=== PATIENT | female | born 1970 | race Caucasian/White ===

== ENCOUNTER → 2017-03-28 | Outpatient (CLI) | payer BC ==
[~2017-03-28] MED LIST: CONTRAST GIVEN MC PRN; HYDR-2766 PO; IOHEXOL 240 MG/ML 50ML VIAL. PO ONE; IOHEXOL 300 MG/ML 100ML VIAL. IV ONE; LISI1TAB3 PO; ONDA8TAB9 PO
--- NOTE | 2017-03-28 10:18 | KCIC ---
Indication: Chronic abdominal pain for one to 2 weeks. Pain is greater in the lower abdomen. Irritable bowel syndrome. Technique: Axial images and coronal and sagittal reformatted images are provided. Oral contrast and 100 mL of intravenous Omnipaque 300 was administered without complication. Comparison is a CT from March 09, 2010. One or more of the following individualized dose reduction techniques were utilized for this examination: 1. Automated exposure control 2. Adjustment of the mA and/or kV according to patient size 3. Use of iterative reconstruction technique Findings: 2 mm nodule is noted in the right middle lobe on the initial image. There is no pleural effusion. The heart is not enlarged. There is fatty infiltration of the liver. Gallbladder is absent. Spleen is not enlarged. Pancreas and adrenals are unremarkable. Kidneys are symmetrically perfused. Aorta is normal caliber. There is no small bowel obstruction or mural thickening. Normal appendix is noted. Colon is mostly decompressed but grossly unremarkable. Incomplete distention of the colon limits evaluation. There is a small fat-containing umbilical hernia. There is increased pelvic fat with compression of the bladder in the transverse dimension. Uterus is presumed surgically absent. Calcified phleboliths are noted. Mildly prominent left iliac chain lymph node measures 17 x 10 mm. This is relatively stable compared to 2010. There are degenerative changes in the spine greatest at L4-L5, probably moderate canal stenosis at this level. IMPRESSION: 1. No acute abdominal findings. 2. Fatty infiltration of the liver. 3. Mildly prominent left iliac chain lymph node is stable back to 2010, probably reactive. 4. Pelvic lipomatosis. 5. Moderate stenosis suspected at L4-L5, would be better evaluated by MRI or postmyelogram CT. 6. 2 mm pulmonary nodule. In a low-risk patient, no further workup is required. In a high-risk patient, 12 month follow-up can be considered. Recommendations are per 2017 Fleischner Society guidelines. Electronically signed by: Robert Fields MD (03/28/2017 10:15 AM) [id number]
== END | disposition home or self-care (01) ==
LOC: KCIC CT 08:12
PROVIDERS: ATTEND Family Medicine
DX: K58.9 Irritable bowel syndrome, unspecified (principal); K76.0 Fatty (change of) liver, not elsewhere classified; G89.29 Other chronic pain; E88.2 Lipomatosis, not elsewhere classified; R91.1 Solitary pulmonary nodule
CPT/HCPCS: 74177; Q9966; Q9967

== ENCOUNTER 2019-05-23 19:17 | Emergency (ER) | payer OTHER ==
[~2019-05-23] VITALS: Ht 157.5 cm; Wt 112.5 kg
[~2019-05-23 19:17] MED LIST changes: -CONTRAST GIVEN MC PRN; -HYDR-2766 PO; +HYDR-2769 PO; -IOHEXOL 240 MG/ML 50ML VIAL. PO ONE; -IOHEXOL 300 MG/ML 100ML VIAL. IV ONE; +LISI1TAB23 PO; -LISI1TAB3 PO
[2019-05-23 19:58] LABS: BASO % 0 % (0-3); EOS # 0.1 x10^3/uL (0.0-0.7); EOS % 2 % (0-3); HEMATOCRIT 36.9 % (36.0-47.0); HEMOGLOBIN 12.6 g/dL (12.0-15.5); LYMPH # 3.7 x10^3/uL (1.0-4.8); LYMPH % 40 % (24-48); MEAN CORPUSCULAR HEMOGLOBIN 29 pg (25-35); MEAN CORPUSCULAR HGB CONC 34 g/dL (31-37); MEAN CORPUSCULAR VOLUME 86 fL (79-100); MONO # 0.5 x10^3/uL (0.0-1.1); MONO % 6 % (0-9); NEUT # 4.8 x10^3/uL (1.8-7.7); NEUT % 52 % (31-73); PLATELET COUNT 281 x10^3/uL (140-400); RED BLOOD COUNT 4.29 x10^6/uL (3.50-5.40); RED CELL DISTRIBUTION WIDTH 12.7 % (11.5-14.5); WHITE BLOOD COUNT 9.3 x10^3/uL (4.0-11.0)
[2019-05-23 19:59] LABS: BILIRUBIN,URINE NEGATIVE (NEG); CLARITY,URINE CLEAR; COLOR,URINE YELLOW; NITRITE,URINE NEGATIVE (NEG); PH,URINE 5.5; PROTEIN,URINE NEGATIVE (NEG-TRACE); UROBILINOGEN,URINE 0.2 mg/dL (0.2 mg/dL)
[2019-05-23] MEDS ORDERED: KETOROLAC 30 MG/ML VIAL. IV ONE (20:00)
[2019-05-23 20:05] LABS: BARBITURATES NEG (NEG); BENZODIAZEPINES NEG (NEG); CANNABINOIDS NEG (NEG); COCAINE NEG (NEG); METHADONE NEG (NEG); OPIATES NEG (NEG); PHENCYCLIDINE NEG (NEG)
[2019-05-23 20:09] LABS: BACTERIA,URINE MODERATE /HPF (0-FEW); RBC,URINE 0 /HPF (0-2); SQUAMOUS EPITHELIAL CELL,UR MOD /LPF
[2019-05-23 20:12] LABS: CALCIUM 9.4 mg/dL (8.5-10.1); CREATININE 0.7 mg/dL (0.6-1.0); GFR 89.7
[2019-05-23 20:17] LABS: AMPHETAMINE/METHAMPHETAMINE NEG (NEG)
[2019-05-23 20:18] LABS: ALBUMIN/GLOBULIN RATIO 1.1 (1.0-1.7); TOTAL BILIRUBIN 0.3 mg/dL (0.2-1.0); TOTAL PROTEIN 7.7 g/dL (6.4-8.2)
--- NOTE | 2019-05-23 20:34 | PHYS DOC ---
Past Medical History Past Medical History: Hypertension, IBS Additional Past Medical Histor: REPORTS SHE NO LONGER HAS HYPERTENSION DOES NOT TAKE ANY MEDS Past Surgical History: Cholecystectomy, , Hysterectomy Additional Past Surgical Histo: MORTONS NEUROMA REMOVED, CARPAL TUNNEL, ULNAR NERVE, BREAST REDUCTION Alcohol Use: Rarely Drug Use: None Adult General Chief Complaint Chief Complaint: FLANK PAIN [facility] HPI Patient is a 49 year old female with a history of hypertension, cholecystectomy, who presents to the ED today complaining of 8 out of 10 right flank pain radiating to her right upper abdomen and the groin that began this morning at 10 AM. Patient describes the pain as sharp and intermittent worse on movement and sitting up. Denies anything specifically related pain. Denies any nausea, vomiting, diarrhea. Review of Systems Review of Systems Constitutional: Denies fever or chills [] Eyes: Denies change in visual acuity, redness, or eye pain [] HENT: Denies nasal congestion or sore throat [] Respiratory: Denies cough or shortness of breath [] Cardiovascular: No additional information not addressed in HPI [] GI: Reports right upper quadrant pain, denies nausea, vomiting, bloody stools or diarrhea [] : Denies dysuria or hematuria [] Musculoskeletal: Reports right flank pain. Integument: Denies rash or skin lesions [] Neurologic: Denies headache, focal weakness or sensory changes [] All other systems were reviewed and found to be within normal limits, except as documented in this note. Current Medications Current Medications Current Medications Medications (Trade) Dose Ordered Sig/[facility] Start Time Stop Time Status Last Admin Dose Admin Ketorolac Tromethamine (Toradol 30mg Vial) 30 mg 1X ONCE 05/23/19 20:00 05/23/19 20:01 DC 05/23/19 20:00 30 MG Allergies Allergies Allergies Coded Allergies Type Severity Reaction Last Updated Verified Iodine and Iodide Containing Produc Allergy Mild Hives 03/28/17 Yes amphetamine Allergy Unknown 03/28/17 Yes dextroamphetamine Allergy Unknown 03/28/17 Yes oxycodone Allergy Unknown 03/28/17 Yes Physical Exam Physical Exam Constitutional: Well developed, well nourished, no acute distress, non-toxic appearance. [] HENT: Normocephalic, atraumatic, bilateral external ears normal, oropharynx moist, no oral exudates, nose normal. [] Eyes: PERRLA, EOMI, conjunctiva normal, no discharge. [] Neck: Normal range of motion, no tenderness, supple, no stridor. [] Cardiovascular:Heart rate regular rhythm, no murmur [] Lungs & Thorax: Bilateral breath sounds clear to auscultation [] Abdomen: Bowel sounds normal, soft, no tenderness, no masses, no pulsatile masses. [] Skin: Warm, dry, no erythema, no rash. [] Back: No tenderness, mild right CVA tenderness. [] Extremities: No tenderness, no cyanosis, no clubbing, ROM intact, no edema. [] Neurologic: Alert and oriented X 3, normal motor function, normal sensory function, no focal deficits noted. [] Psychologic: Affect normal, judgement normal, mood normal. [] Current Patient Data Vital Signs Vital Signs Date Time Temp Pulse Resp B/P (MAP) Pulse Ox O2 Delivery O2 Flow Rate FiO2 05/23/19 19:29 98.2 80 20 160/74 (102) 94 Room Air 98.2 Lab Values Laboratory Tests Test 05/23/19 19:40 White Blood Count 9.3 x10^3/uL (4.0-11.0) Red Blood Count 4.29 x10^6/uL (3.50-5.40) Hemoglobin 12.6 g/dL (12.0-15.5) Hematocrit 36.9 % (36.0-47.0) Mean Corpuscular Volume 86 fL (79-100) Mean Corpuscular Hemoglobin 29 pg (25-35) Mean Corpuscular Hemoglobin Concent 34 g/dL (31-37) Red Cell Distribution Width 12.7 % (11.5-14.5) Platelet Count 281 x10^3/uL (140-400) Neutrophils (%) (Auto) 52 % (31-73) Lymphocytes (%) (Auto) 40 % (24-48) Monocytes (%) (Auto) 6 % (0-9) Eosinophils (%) (Auto) 2 % (0-3) Basophils (%) (Auto) 0 % (0-3) Neutrophils # (Auto) 4.8 x10^3/uL (1.8-7.7) Lymphocytes # (Auto) 3.7 x10^3/uL (1.0-4.8) Monocytes # (Auto) 0.5 x10^3/uL (0.0-1.1) Eosinophils # (Auto) 0.1 x10^3/uL (0.0-0.7) Basophils # (Auto) 0.0 x10^3/uL (0.0-0.2) Urine Collection Type Unknown Urine Color Yellow Urine Clarity Clear Urine pH 5.5 Urine Specific [place] 1.025 Urine Protein Negative mg/dL (NEG-TRACE) Urine Glucose (UA) Negative mg/dL (NEG) Urine Ketones (Stick) Negative mg/dL (NEG) Urine Blood Negative (NEG) Urine Nitrite Negative (NEG) Urine Bilirubin Negative (NEG) Urine Urobilinogen Dipstick 0.2 mg/dL (0.2 mg/dL) Urine Leukocyte Esterase Negative (NEG) Urine RBC 0 /HPF (0-2) Urine WBC 1-4 /HPF (0-4) Urine Squamous Epithelial Cells Mod /LPF Urine Bacteria Moderate /HPF (0-FEW) Urine Mucus Marked /LPF Sodium Level 142 mmol/L (136-145) Potassium Level 4.0 mmol/L (3.5-5.1) Chloride Level 103 mmol/L (98-107) Carbon Dioxide Level 31 mmol/L (21-32) Anion Gap 8 (6-14) Blood Urea Nitrogen 16 mg/dL (7-20) Creatinine 0.7 mg/dL (0.6-1.0) Estimated GFR (Cockcroft-Gault) 89.7 BUN/Creatinine Ratio 23 (6-20) H Glucose Level 95 mg/dL (70-99) Calcium Level 9.4 mg/dL (8.5-10.1) Total Bilirubin 0.3 mg/dL (0.2-1.0) Aspartate Amino Transferase (AST) 16 U/L (15-37) Alanine Aminotransferase (ALT) 18 U/L (14-59) Alkaline Phosphatase 90 U/L (46-116) Total Protein 7.7 g/dL (6.4-8.2) Albumin 4.0 g/dL (3.4-5.0) Albumin/Globulin Ratio 1.1 (1.0-1.7) Lipase 140 U/L (73-393) Urine Opiates Screen Neg (NEG) Urine Methadone Screen Neg (NEG) Urine Barbiturates Neg (NEG) Urine Phencyclidine Screen Neg (NEG) Urine Amphetamine/Methamphetamine Neg (NEG) Urine Benzodiazepines Screen Neg (NEG) Urine Cocaine Screen Neg (NEG) Urine Cannabinoids Screen Neg (NEG) Ethyl Alcohol Level < 10 mg/dL (0-10) Urine Ethyl Alcohol Neg (NEG) Laboratory Tests 05/23/19 19:40 Laboratory Tests 05/23/19 19:40 EKG EKG [] Radiology/Procedures Radiology/Procedures []PROCEDURE: CT ABDOMEN PELVIS WO CONTRAST CT scan of the abdomen and pelvis without contrast 05/23/2019 CLINICAL HISTORY: Right flank pain. TECHNIQUE: Unenhanced, contiguous, 2 mm axial sections were obtained through the abdomen and pelvis. One or more of the following individualized dose reduction techniques were utilized for this study: 1. Automated exposure control. 2. Adjustment of the mA and/or kV according to patient size. 3. Use of iterative reconstruction technique. FINDINGS: Comparison study is dated 03/28/2017. Images through the lung bases demonstrate minimal dependent subsegmental atelectasis bilaterally. The liver parenchyma has a decreased attenuation consistent with fatty infiltration. The liver is mildly enlarged measuring 22 cm in length. The spleen, pancreas and adrenal glands are within normal limits. No renal or ureteral calculus is seen. There is no evidence of obstruction of either collecting system. Surgical clips are seen within the gallbladder fossa consistent with a cholecystectomy. The abdominal aorta tapers normally. No free fluid or free air is seen within the abdomen. The appendix is well-visualized and is within normal limits. Patchy increased density is seen within the fat lateral to the inferior aspect of the ascending colon. This may represent a focal area of epiploic appendagitis. Images through the pelvis demonstrate the urinary bladder distended with urine. Calcifications are seen within the pelvis consistent with phleboliths. No free fluid is seen. No adnexal mass is noted. The patient appears to be post hysterectomy. Very mild S-shaped curvature of the thoracolumbar spine is seen. Degenerative changes are seen involving lower thoracic and throughout the lumbar spine along with both hips. IMPRESSION: A patchy area of increased density is seen within the fat lateral to the inferior aspect of the ascending colon which may represent a focal area of epiploic appendagitis. Electronically signed by: Owen Chairez MD (05/23/2019 8:50 PM) [facility] DICTATED and SIGNED BY: OWEN CHAIREZ MD DATE: 05/23/192049 Course & Med Decision Making Course & Med Decision Making Pertinent Labs and Imaging studies reviewed. (See chart for details) This is a 49-year-old female patient who presents to the ED today with right fl ank pain radiating to the right upper quadrant into the groin, pain began this morning at 10. CBC, CMP, UA-negative for any acute findings. Vitals are stable, patient is afebrile. CT of the abdomen and pelvic was noted for epiploic appendagitis. Patient was discharged to home with pain medicine. Provided return precautions. Follow-up with PCP in 1-2 weeks. Dragon Disclaimer Dragon Disclaimer This electronic medical record was generated, in whole or in part, using a voice recognition dictation system. Departure Departure Impression: Primary Impression: Epiploic appendagitis Disposition: HOME, SELF-CARE Condition: STABLE Referrals: YOSEF PHIPPS MD (PCP) Follow-up with your doctor next week Patient Instructions: Abdominal Pain (Nonspecific) Additional Instructions: You were evaluated in the emergency room and noted to have epiploic appendagitis-this is a rare condition that occurs when you lose blood flow to very small pouches of fat that are situated over the colon, or large intestine, this condition is self-limited mending it will resolve on its own. You can take [id number] pain medicines as needed. Follow-up with your own doctor in the course of next week. KOREY HERNANDEZ APRN May 23, 2019 20:34
--- NOTE | 2019-05-23 20:53 | RAD ---
CT scan of the abdomen and pelvis without contrast 05/23/2019 CLINICAL HISTORY: Right flank pain. TECHNIQUE: Unenhanced, contiguous, 2 mm axial sections were obtained through the abdomen and pelvis. One or more of the following individualized dose reduction techniques were utilized for this study: 1. Automated exposure control. 2. Adjustment of the mA and/or kV according to patient size. 3. Use of iterative reconstruction technique. FINDINGS: Comparison study is dated 03/28/2017. Images through the lung bases demonstrate minimal dependent subsegmental atelectasis bilaterally. The liver parenchyma has a decreased attenuation consistent with fatty infiltration. The liver is mildly enlarged measuring 22 cm in length. The spleen, pancreas and adrenal glands are within normal limits. No renal or ureteral calculus is seen. There is no evidence of obstruction of either collecting system. Surgical clips are seen within the gallbladder fossa consistent with a cholecystectomy. The abdominal aorta tapers normally. No free fluid or free air is seen within the abdomen. The appendix is well-visualized and is within normal limits. Patchy increased density is seen within the fat lateral to the inferior aspect of the ascending colon. This may represent a focal area of epiploic appendagitis. Images through the pelvis demonstrate the urinary bladder distended with urine. Calcifications are seen within the pelvis consistent with phleboliths. No free fluid is seen. No adnexal mass is noted. The patient appears to be post hysterectomy. Very mild S-shaped curvature of the thoracolumbar spine is seen. Degenerative changes are seen involving lower thoracic and throughout the lumbar spine along with both hips. IMPRESSION: A patchy area of increased density is seen within the fat lateral to the inferior aspect of the ascending colon which may represent a focal area of epiploic appendagitis. Electronically signed by: Owen Olivarez MD (05/23/2019 8:50 PM) [facility]
[2019-05-23 21:13] VITALS: BP 121/70
== END 2019-05-23 21:42 | disposition home or self-care (01) ==
LOC: ER 19:17
DX: K63.89 Other specified diseases of intestine (principal); I10 Essential (primary) hypertension; Z90.49 Acquired absence of other specified parts of digestive tract; Z98.890 Other specified postprocedural states; Z90.710 Acquired absence of both cervix and uterus; Z88.5 Allergy status to narcotic agent; Z88.8 Allergy status to other drugs, medicaments and biological substances; Z91.041 Radiographic dye allergy status
CPT/HCPCS: 36415; 74176; 80053; 80307; 81001; 83690; 85025; 87086; 96374; 99285; G0480; J1885

== ENCOUNTER → 2021-08-10 | Outpatient (CLI) | payer OTHER ==
[~2021-08-10] MED LIST changes: -LISI1TAB23 PO; +LISI1TAB35 PO
--- NOTE | 2021-08-10 11:01 | KCIC ---
EXAM: ULTRASOUND SOFT TISSUE NECK CLINICAL HISTORY: Reason: THYROID NODULE, ADENOPATHY / Spl. Instructions: / History: COMPARISON: None available. TECHNIQUE: Ultrasound examination of the thyroid gland was performed FINDINGS: The right thyroid lobe measures 5 x 1.9 x 1.2 cm. The left thyroid lobe measures 4.8 x 1.6 x 2 cm. The thyroid isthmus measures 0.6 cm. A 1 x 0.8 x 0.6 cm hypoechoic solid nodule is seen in the upper pole of the right thyroid with irregu lar margins. A 0.7 x 0.7 x 0.5 cm hypoechoic solid nodule seen in the upper pole of the left thyroid. A 2.6 x 2.1 x 2.3 cm hypoechoic nodule seen at the lower pole of the left thyroid. Several enlarged right neck lymph nodes are seen including a 2.5 x 1.9 cm IMPRESSION: 1. The 2.6 cm left thyroid nodule is TI-RADS 4, given size, recommend FNA. 2. Right cervical lymphadenopathy, given cortical thickening and enlargement, possibly reactive alth ough metastatic involvement could have this appearance. Consider FNA of the right cervical lymph node s at the time of the left thyroid nodule FNA 3. The right thyroid nodule is TI-RADS 4, recommend 12 month ultrasound follow-up. Electronically signed by: Edouard James MD (08/10/2021 10:59 AM) [facility]
== END ==
LOC: KCIC US 08:05
PROVIDERS: ATTEND Family Medicine
DX: E04.2 Nontoxic multinodular goiter (principal); R59.1 Generalized enlarged lymph nodes
CPT/HCPCS: 76536

== ENCOUNTER → 2021-08-23 | Outpatient (CLI) | payer OTHER ==
[~2021-08-23] MED LIST changes: +LIDOCAINE 1% Multi-Dose 20 ML VIAL. INJ ONE
--- NOTE | 2021-08-23 15:33 | RAD ---
US FNA BIOPSY 1ST LESION History:Reason: LEFT THYROID NODULE / Spl. Instructions: / History: Comparison: None. Procedure: The risks, alternatives, and benefits of the procedure are discussed with the patient. Written inform ed consent is obtained. A time out procedure is performed. Neck prepped and draped in normal sterile fashion. 1% lidocaine was injected into the skin and soft tissue along route to the nodule of the thyroid. 3 s eparate passes were made with a 22-gauge needle. To and fro movement of the needle was performed in t he nodule. Difficult procedure due to patient body habitus and inferior positioning of the nodule. He mostasis is achieved. The patient tolerated the procedure well. There is no immediate complication. Unchanged appearance of the right cervical chain lymph node measures 2.5 x 0.8 cm. The cortex is mild ly thickened. Normal fatty hilum. The lymph node is potentially reactive. The proximity of the lymph node is immediately adjacent to prominent vasculature causing more potential difficulty with biopsy. IMPRESSION: 1. Ultrasound guided fine needle aspiration of a left thyroid nodule. 2. Right cervical lymph node was not biopsied at this time. Recommend 3 month follow-up ultrasound a nd follow-up with pathology results of the thyroid nodule biopsy. Electronically signed by: Xavier Gray DO (08/23/2021 3:31 PM) [id number]
--- NOTE | 2021-08-24 18:08 | PATHOLOGY ---
Note [facility] Accession Number: [id number] TESTS RESULT FLAG UNITS REF RANGE LAB Clinician Provided Cytology Information No. of containers..01 Other (Miscellaneous) Source: LEFT THYROID DIAGNOSIS: LEFT THYROID NEGATIVE FOR MALIGNANT CELLS. BETHESDA CATEGORY II. SPECIMEN CONSISTS OF BENIGN FOLLICULAR CELLS, HEMOSIDERIN-LADEN MACROPHAGES, COLLOID, AND BLOOD. THIS PATTERN IS CONSISTENT WITH A BENIGN FOLLICULAR NODULE. THIS INTERPRETATION INCLUDES EVALUATION OF A CELL BLOCK. Pathologist ICD10: 02 E04.1 Signed out by: 02 Turner De Souza MD, Pathologist NPI- [id number] Performed by: Itzel Abdalla, Jogger Operator ([facility]) Gross description: 31ML, RED, CLEAR /LCS 08/24/2021 0331 Local FLAG LEGEND: L-Low Normal,H-High Normal,LL-Alert Low,HH-Alert High <-Panic Low,>-Panic High,A-Abnormal,AA-Critical Abnormal Performed at: [facility] [address] [place] [address] Arjun Carnes MD, 02 [facility] [address] [place] [address] Turner De Souza MD, Specimen Comment: A courtesy copy of this report has been sent to [phone], [phone] Specimen Comment: [id number], Specimen Comment: Report sent to DR. PHIPPS, DR BERNARD / DR COREA Performed at: [address], [place], [place] [id number] MD Arjun Carnes MD Phone: [phone]
== END | disposition home or self-care (01) ==
LOC: US 12:16
PROVIDERS: ATTEND Family Medicine
DX: E04.1 Nontoxic single thyroid nodule (principal); Z79.899 Other long term (current) drug therapy; Z88.1 Allergy status to other antibiotic agents; Z91.041 Radiographic dye allergy status; Z88.8 Allergy status to other drugs, medicaments and biological substances; Z72.89 Other problems related to lifestyle
CPT/HCPCS: 10005; C1819; 88173; 88305